=== PATIENT | male | born 1990 | race African-American/Black ===

== ENCOUNTER 2019-07-08 08:24 | Emergency (ER) | payer SELFPAY ==
[~2019-07-08] VITALS: Ht 182.9 cm; Wt 68.9 kg
[2019-07-08 08:30] VITALS: Ht 182.9 cm; Wt 68.9 kg
[2019-07-08 09:21] VITALS: BP 131/69
== END 2019-07-08 09:21 | disposition home or self-care (01) ==
LOC: ED 08:24
DX: L30.9 Dermatitis, unspecified (principal)

== ENCOUNTER 2019-08-27 03:42 | Emergency (ER) | payer MEDICAID ==
[~2019-08-27] VITALS: Ht 182.9 cm; Wt 59.0 kg
[2019-08-27 04:29] LABS: BASOPHIL % 0.3 % (0-2); PLATELET COUNT 231 x10^3mcL (130-400); RED CELL DISTRIBUTION WIDTH 14.2 % (11.5-14.5)
[2019-08-27 04:33] LABS: CALCIUM 8.1 mg/dL (8.5-10.1); CARBON DIOXIDE 29.5 mmol/L (21-32); CHLORIDE SERUM 103 mmol/L (98-107); CREATININE SERUM 1.2 mg/dL (0.7-1.3); GFR1 > 60 mL/min; GLUCOSE SERUM 86 mg/dL (74-106); POTASSIUM SERUM 3.5 mmol/L (3.5-5.1); SODIUM SERUM 136 mmol/L (136-145)
[2019-08-27 04:37] LABS: ALBUMIN 2.3 g/dL (3.4-5.0); ALKALINE PHOSPHATASE 90 U/L (46-116); ALT/SGPT 13 U/L (16-63); AST/SGOT 25 U/L (15-37); BILIRUBIN TOTAL 0.16 mg/dL (0.20-1.00); CHOLESTEROL 152 mg/dL (<200); HDL CHOLESTEROL 23 mg/dL (40-60); PHOSPHOROUS 4.5 mg/dL (2.5-4.9); TOTAL PROTEIN, SERUM 8.9 g/dL (6.4-8.2); URIC ACID 5.9 mg/dL (3.5-7.2)
[2019-08-27 05:42] VITALS: BP 115/63
[2019-08-28 13:05] LABS: RAPID PLASMA REAGIN Reactive (Non Reactive)
== END 2019-08-27 05:42 | disposition home or self-care (01) ==
LOC: ED 03:42
PROVIDERS: Emergency Medicine
DX: A63.8 Other specified predominantly sexually transmitted diseases (principal); A51.49 Other secondary syphilitic conditions
CPT/HCPCS: 36415; J0561

== ENCOUNTER 2019-08-30 02:21 | Emergency (ER) | payer MEDICAID ==
[~2019-08-30] VITALS: Ht 182.9 cm; Wt 57.2 kg
[2019-08-30 02:31] VITALS: Ht 182.9 cm; Wt 57.2 kg
[2019-08-30 05:36] VITALS: BP 122/69
== END 2019-08-30 05:36 | disposition home or self-care (01) ==
LOC: ED 02:21
DX: S86.891A Other injury of other muscle(s) and tendon(s) at lower leg level, right leg, initial encounter (principal); S86.892A Other injury of other muscle(s) and tendon(s) at lower leg level, left leg, initial encounter; X58.XXXA Exposure to other specified factors, initial encounter; Y93.01 Activity, walking, marching and hiking; Y92.89 Other specified places as the place of occurrence of the external cause; Y99.8 Other external cause status
CPT/HCPCS: Q0092